=== PATIENT | male | born 1940 | race Caucasian/White ===

== ENCOUNTER 2016-08-05 10:54 | Emergency (ER) | payer OTHER ==
[~2016-08-05] VITALS: Ht 177.8 cm; Wt 77.6 kg
[~2016-08-05 10:54] MED LIST: ALDACTONE50 MG PO; AMLODIPINE BESYL5 MG PO; ASPIRIN325 MG PO; ASPIRIN81 M1 PO; B-12 PO; CRESTOR20 MG PO; CYANOCOBALAM1000 MCG PO; ECOTRIN325 MG PO; EXPECTA LIPIL PO; Ecotrin PO; FISH OIL 1,0001 EAC7 PO; FISH OIL 1,001000 M1 PO; FISH OIL SOFTG1 EACH PO; FUROSEMIDE40 MG PO; Fish Oil PO; Folvite PO; GLIPIZIDE XL5 MG PO; GLIPIZIDE10 MG PO; GLIPIZIDE5 MG PO; GLUCOPHAGE1000 MG PO; GLUCOTROL XL5 MG PO; Glucophage PO; Glucotrol PO; IMDUR30 MG PO; ISOSORBIDE DINI30 MG PO; ISOSORBIDE MONO30 MG PO; Imdur PO; JANUVIA100 MG PO; JANUVIA25 MG PO; K-DUR20 MEQ PO; K-Dur PO; LASIX40 MG PO; LISINOPRIL20 MG PO; LOPRESSOR100 MG PO; LOPRESSOR50 MG PO; Lasix PO; Levaquin PO; Lopressor PO; METFORMIN HCL1000 M1 PO; METOPROLOL PO; METOPROLOL SUCC50 MG PO; METOPROLOL TART50 MG PO; Norvasc PO; PLAVIX75 MG PO; PRAVASTATIN SOD40 MG PO; PRINIVIL20 MG PO; PROTONIX40 MG PO; Plavix PO; RANITIDINE HCL300 M1 PO; RANITIDINE HCL75 MG PO; TRICOR145 MG PO; TRILIPIX135 MG PO; WELCHOL625 MG PO; ZANTAC300 MG PO; ZESTRIL20 MG PO; ZETIA10 MG PO; Zestril,Prinivil PO
[2016-08-05 11:36] LABS: POINT-OF-CARE METER ID UU13113702
[2016-08-05 12:21] LABS: EOSINOPHIL (%) 0.9 % (0-5); EOSINOPHIL COUNT 0.1 K/uL (0-0.3); HEMATOCRIT 36.4 % (38.0-50.0); IMMATURE GRANULOCYTE (%) 0.4 % (0.0-0.7); IMMATURE GRANULOCYTE COUNT 0.4 K/uL; LYMPHOCYTE COUNT 1.2 K/uL (1.0-2.8); MCH 28.5 PG (29.0-34.0); MCHC 33.8 G/DL (30.0-36.0); MCV 84.3 FL (86-99); MONOCYTE (%) 6.7 % (3-12); MONOCYTE COUNT 0.6 K/uL (0-0.8); NEUTROPHIL (%) 77.9 % (45-76); PLATELET COUNT 178 K/uL (156-360); RBC DIS.WIDTH-CV 13.8 % (11.8-14.6); RBC DIS.WIDTH-SD 41.8 % (39-53); RED BLOOD COUNT 4.32 M/uL (4.00-5.50)
[2016-08-05 12:30] LABS: CHLORIDE 104 mEq/L (99-109); POTASSIUM 4.4 mEq/L (3.7-5.4); SODIUM 138 mEq/L (136-147)
[2016-08-05 12:32] LABS: GLUCOSE 154 mg/dL (70-99)
[2016-08-05 12:33] LABS: ANION GAP 7 MEQ/L (2-14)
[2016-08-05 12:34] LABS: TOTAL BILIRUBIN 0.5 mg/dL (0.0-1.0)
[2016-08-05 12:35] LABS: ALKALINE PHOSPHATASE 62 IU/L (3-129)
[2016-08-05 12:36] LABS: GFR ESTIMATE (CALCULATED) 57 mL/min/
[2016-08-05 12:37] LABS: UREA NITROGEN (BUN) 26 mg/dL (9-23)
[2016-08-05 12:43] LABS: TROP-I INTERPRETATION NEGATIVE; TROPONIN-I 0.01 ng/mL (0.0-0.30)
[2016-08-05] MEDS ORDERED: CRESTOR40 MG PO (13:11)
[2016-08-05] MEDS ORDERED: LEVEMIR FL100 UNIT/1 SC (13:12)
[2016-08-05] MEDS ORDERED: PERCOCET 10/1 TABLET PO (13:13)
[2016-08-05] MEDS ORDERED: ZANAFLEX4 M1 PO (13:14)
[2016-08-05 14:09] VITALS: BP 90/34
== END 2016-08-05 14:09 | disposition home or self-care (01) ==
LOC: EME 10:54
PROVIDERS: Emergency Medicine
DX: R55 Syncope and collapse (principal); D64.9 Anemia, unspecified; T40.2X5A Adverse effect of other opioids, initial encounter; I11.0 Hypertensive heart disease with heart failure; I50.9 Heart failure, unspecified; E11.9 Type 2 diabetes mellitus without complications; E78.5 Hyperlipidemia, unspecified; I25.2 Old myocardial infarction; K21.9 Gastro-esophageal reflux disease without esophagitis; Z87.442 Personal history of urinary calculi; Z95.1 Presence of aortocoronary bypass graft; Z98.61 Coronary angioplasty status; Z86.73 Personal history of transient ischemic attack (TIA), and cerebral infarction without residual deficits; Z79.84 Long term (current) use of oral hypoglycemic drugs; Z79.82 Long term (current) use of aspirin; Z87.891 Personal history of nicotine dependence
CPT/HCPCS: 80053; 82948; 84484; 85025; 93005; 99281; 99284

== ENCOUNTER 2016-11-10 10:53 | Day surgery (SDC) | payer OTHER ==
[~2016-11-10] VITALS: Ht 177.8 cm; Wt 73.5 kg
[~2016-11-10 10:53] MED LIST changes: +CRESTOR40 MG PO; +GRALISE300 MG PO; +LEVEMIR FL100 UNIT/1 SC; +PERCOCET 10/1 TABLET PO; +ZANAFLEX4 M1 PO
[2016-11-10 11:52] LABS: POINT-OF-CARE METER ID UU14174212
== END 2016-11-10 12:45 | disposition home or self-care (01) ==
LOC: PAIN 10:53
PROVIDERS: Anesthesiology Pain Medicine
PROC: 3E0S33Z Introduction of Anti-inflammatory into Epidural Space, Percutaneous Approach (ICD-10-PCS; principal; 2016-11-10)
DX: M54.16 Radiculopathy, lumbar region (principal); F41.9 Anxiety disorder, unspecified; M25.512 Pain in left shoulder; E11.9 Type 2 diabetes mellitus without complications; I50.9 Heart failure, unspecified; I71.4 Abdominal aortic aneurysm, without rupture; I25.10 Atherosclerotic heart disease of native coronary artery without angina pectoris; I48.91 Unspecified atrial fibrillation; I73.9 Peripheral vascular disease, unspecified; E78.5 Hyperlipidemia, unspecified; Z98.61 Coronary angioplasty status; Z87.891 Personal history of nicotine dependence; Z79.82 Long term (current) use of aspirin; Z79.84 Long term (current) use of oral hypoglycemic drugs; Z88.8 Allergy status to other drugs, medicaments and biological substances; Z88.7 Allergy status to serum and vaccine
CPT/HCPCS: 82948; J1030

== ENCOUNTER 2016-12-08 10:32 | Day surgery (SDC) | payer OTHER ==
[~2016-12-08] VITALS: Ht 175.3 cm; Wt 73.0 kg
[2016-12-08 11:27] LABS: POINT-OF-CARE METER ID UU14174212
== END 2016-12-08 11:55 | disposition home or self-care (01) ==
LOC: PAIN 10:32 → SDC 11:30 → PAIN 11:55
PROVIDERS: Anesthesiology Pain Medicine
PROC: 3E0S33Z Introduction of Anti-inflammatory into Epidural Space, Percutaneous Approach (ICD-10-PCS; principal; 2016-12-08)
DX: M54.16 Radiculopathy, lumbar region (principal); Z87.891 Personal history of nicotine dependence; I48.91 Unspecified atrial fibrillation; I25.10 Atherosclerotic heart disease of native coronary artery without angina pectoris; E11.65 Type 2 diabetes mellitus with hyperglycemia; E78.5 Hyperlipidemia, unspecified; I73.9 Peripheral vascular disease, unspecified; Z95.1 Presence of aortocoronary bypass graft; Z79.82 Long term (current) use of aspirin; Z88.8 Allergy status to other drugs, medicaments and biological substances; Z88.7 Allergy status to serum and vaccine
CPT/HCPCS: 82948; J1030

== ENCOUNTER 2017-08-22 14:08 | Emergency (ER) | payer OTHER ==
[~2017-08-22] VITALS: Ht 177.8 cm; Wt 76.1 kg
[2017-08-22 17:25] LABS: HEMOGLOBIN 14.2 G/DL (12.5-16.6); MCH 29.2 PG (29.0-34.0); MCV 88.5 FL (86-99); PLATELET COUNT 127 K/uL (156-360); RBC DIS.WIDTH-SD 45.1 % (39-53); RED BLOOD COUNT 4.86 M/uL (4.00-5.50); WHITE BLOOD COUNT 7.6 K/uL (4.1-10.2)
[2017-08-22 17:42] LABS: CHLORIDE 105 mEq/L (99-109); POTASSIUM 4.3 mEq/L (3.7-5.4); SODIUM 137 mEq/L (136-147)
[2017-08-22 17:43] LABS: MAGNESIUM 1.7 mg/dL (1.3-2.7)
[2017-08-22 17:44] LABS: GLUCOSE 227 mg/dL (70-99)
[2017-08-22 17:47] LABS: CREATININE 1.1 mg/dL (0.6-1.3); GFR ESTIMATE (CALCULATED) > 59 mL/min/ (58.99-99999)
[2017-08-22 17:48] LABS: UREA NITROGEN (BUN) 26 mg/dL (9-23)
[2017-08-22 19:04] VITALS: BP 161/79
== END 2017-08-22 19:06 | disposition home or self-care (01) ==
LOC: EME 14:08
PROVIDERS: Emergency Medicine Emergency Medical Services
DX: G45.9 Transient cerebral ischemic attack, unspecified (principal); R11.2 Nausea with vomiting, unspecified; Z86.73 Personal history of transient ischemic attack (TIA), and cerebral infarction without residual deficits; Z79.02 Long term (current) use of antithrombotics/antiplatelets; Z79.82 Long term (current) use of aspirin; I10 Essential (primary) hypertension; E78.5 Hyperlipidemia, unspecified; I25.2 Old myocardial infarction; E11.9 Type 2 diabetes mellitus without complications; Z79.4 Long term (current) use of insulin; Z95.1 Presence of aortocoronary bypass graft; Z95.5 Presence of coronary angioplasty implant and graft; Z87.442 Personal history of urinary calculi; Z87.891 Personal history of nicotine dependence
CPT/HCPCS: 70450; 80048; 82308 90; 82310; 83735; 85027

== ENCOUNTER 2018-01-08 05:37 | Observation (INO) | payer OTHER ==
[~2018-01-08] VITALS: Ht 177.8 cm; Wt 73.0 kg
[2018-01-08 06:30] LABS: HEMATOCRIT 38.2 % (38.0-50.0); MCH 29.6 PG (29.0-34.0); PLATELET COUNT 117 K/uL (156-360); RBC DIS.WIDTH-CV 13.8 % (11.8-14.6); RBC DIS.WIDTH-SD 44.4 % (39-53); RED BLOOD COUNT 4.39 M/uL (4.00-5.50); WHITE BLOOD COUNT 8.7 K/uL (4.1-10.2)
[2018-01-08 06:40] LABS: ALBUMIN 3.4 g/dL (3.2-4.8); CHLORIDE 99 mEq/L (99-109); POTASSIUM 4.2 mEq/L (3.7-5.4); SODIUM 133 mEq/L (136-147)
[2018-01-08 06:43] LABS: GLUCOSE 319 mg/dL (70-99); TOTAL PROTEIN 6.3 g/dL (6.4-8.3)
[2018-01-08 06:45] LABS: TOTAL BILIRUBIN 1.1 mg/dL (0.0-1.0)
[2018-01-08 06:46] LABS: ALKALINE PHOSPHATASE 59 IU/L (3-129)
[2018-01-08 06:47] LABS: CREATININE 2.2 mg/dL (0.6-1.3); GFR ESTIMATE (CALCULATED) 31 mL/min/ (58.99-99999)
[2018-01-08 06:48] LABS: AST (GOT) 19 IU/L (2-34); UREA NITROGEN (BUN) 41 mg/dL (9-23)
[2018-01-08 06:49] LABS: ALT (GPT) 19 IU/L (3-49)
[2018-01-08 06:50] LABS: LIPASE 32 U/L (1.0-51.0); TROP-I INTERPRETATION NEGATIVE; TROPONIN-I 0.04 ng/mL (0.0-0.30)
[2018-01-08] MEDS ORDERED: FLOMAX0.4 MG PO (07:29)
[2018-01-08 08:30] LABS: CREATINE KINASE 37 IU/L (1-294); TOTAL CK 37 IU/L (1-294)
[2018-01-08 08:36] LABS: CK-MB 0.9 ng/mL (0.0-4.9); CKMB RELATIVE INDEX 2.4 (0.0-3.9)
[2018-01-08 09:39] VITALS: BP 102/57
[2018-01-08 13:32] VITALS: BP 88/47
[2018-01-08 13:34] VITALS: BP 90/51; BP 97/55
[2018-01-08 15:11] VITALS: BP 93/54
[2018-01-08 18:44] LABS: TROP-I INTERPRETATION NEGATIVE; TROPONIN-I 0.04 ng/mL (0.0-0.30)
[2018-01-08 22:29] LABS: BILIRUBIN NEGATIVE; BLOOD MODERATE; GLUCOSE (STRIP) NEGATIVE; KETONES NEGATIVE; LEUKOCYTES LARGE; NITRITE NEGATIVE; PROTEIN (STRIP) 30; SPECIFIC GRAVITY 1.015 (1.000-1.030); UROBILINOGEN 0.2 MG/DL (0.2-1.0)
[2018-01-08 22:30] LABS: APPEARANCE TURBID ((CLEAR)); COLOR YELLOW ((YELLOW))
[2018-01-08 22:47] LABS: BACTERIA 4+ /HPF; EPITHELIAL CELLS NONE SEEN /HPF; MUCUS NONE SEEN /LPF; UCUL ADDED? YES; WHITE BLOOD CELLS TNTC /HPF (0-5)
[2018-01-08 23:22] VITALS: BP 151/79
[2018-01-09 06:13] LABS: HEMATOCRIT 36.9 % (38.0-50.0); HEMOGLOBIN 12.3 G/DL (12.5-16.6); MCH 29.1 PG (29.0-34.0); MCHC 33.3 G/DL (30.0-36.0); MCV 87.2 FL (86-99); PLATELET COUNT 109 K/uL (156-360); RBC DIS.WIDTH-CV 13.8 % (11.8-14.6); RBC DIS.WIDTH-SD 43.8 % (39-53); RED BLOOD COUNT 4.23 M/uL (4.00-5.50); WHITE BLOOD COUNT 6.7 K/uL (4.1-10.2)
[2018-01-09 06:36] LABS: CHLORIDE 105 MEQ/L (99-109); CREATININE 1.4 MG/DL (0.6-1.3); GFR ESTIMATE (CALCULATED) 52 mL/min/ (58.99-99999); GLUCOSE 139 mg/dL (70-99); POTASSIUM 3.7 MEQ/L (3.7-5.4); SODIUM 137 MEQ/L (136-147); UREA NITROGEN (BUN) 39 mg/dL (9-23)
[2018-01-09 06:44] VITALS: BP 147/68
[2018-01-09] MEDS ORDERED: LEVEMIR FL100 UNIT/1 SC (12:24)
[2018-01-09] MEDS ORDERED: CEFDINIR300 MG PO (12:33)
== END 2018-01-09 13:18 | disposition home or self-care (01) ==
LOC: EME → EDBD 05:37 → EME 05:37 → 5EAST 07:23 → EDOF 07:23 → ENRESERV 07:27 → 5EAST 09:28
PROVIDERS: Emergency Medicine; Hospitalist; Physician Assistant
DX: N17.9 Acute kidney failure, unspecified (principal); R53.1 Weakness; I11.0 Hypertensive heart disease with heart failure; I50.20 Unspecified systolic (congestive) heart failure; N39.0 Urinary tract infection, site not specified; I25.10 Atherosclerotic heart disease of native coronary artery without angina pectoris; E11.51 Type 2 diabetes mellitus with diabetic peripheral angiopathy without gangrene; E78.5 Hyperlipidemia, unspecified; C61 Malignant neoplasm of prostate; Z90.49 Acquired absence of other specified parts of digestive tract; Z98.890 Other specified postprocedural states; Z79.82 Long term (current) use of aspirin; Z79.4 Long term (current) use of insulin; Z80.6 Family history of leukemia; W18.30XA Fall on same level, unspecified, initial encounter; Z95.1 Presence of aortocoronary bypass graft; I25.2 Old myocardial infarction; Z87.891 Personal history of nicotine dependence
CPT/HCPCS: 70450; 71045; 72125; 76770; 80048; 80053; 81003; 82550; 82553; 82948; 83605; 83690; 84484; 85027; 87040; 87077; 87086; 87186; 93005; 99281; 99284; G0378; J0696; J1815; J7030